=== PATIENT | female | born 1965 | race Hispanic/Latino ===

== ENCOUNTER → 2024-02-08 | Outpatient (CLI) | payer OTHER ==
[~2024-02-08] MED LIST: ALBUTEROL; CETI10CA5 PO; ESCI10TA PO; MONT-46 PO; PSEU-221 PO; [UNRECOGNIZED DRUG - OTHER]
== END | disposition home or self-care (01) ==
LOC: OIH 13:02
PROVIDERS: ATTEND Internal Medicine
DX: Z13.6 Encounter for screening for cardiovascular disorders (principal)
CPT/HCPCS: 75571

== ENCOUNTER 2024-05-16 21:53 | Emergency (ER) | payer BC, OTHER ==
[~2024-05-16] VITALS: Ht 152.4 cm; Wt 68.5 kg
[2024-05-16 23:03] VITALS: BP 126/80; PULSE 77; RESP 20; O2SAT 98
== END 2024-05-16 23:53 | disposition home or self-care (01) ==
LOC: EDH 21:53
DX: Z00.00 Encounter for general adult medical examination without abnormal findings (principal); R06.02 Shortness of breath; E11.9 Type 2 diabetes mellitus without complications; F32.A Depression, unspecified; J45.909 Unspecified asthma, uncomplicated; E78.00 Pure hypercholesterolemia, unspecified; Z90.710 Acquired absence of both cervix and uterus; Z90.49 Acquired absence of other specified parts of digestive tract; Z88.2 Allergy status to sulfonamides; Z88.5 Allergy status to narcotic agent; Z88.8 Allergy status to other drugs, medicaments and biological substances; Z79.899 Other long term (current) drug therapy
CPT/HCPCS: 99281; 99282